=== PATIENT | female | born 1960 | race Caucasian/White ===

== ENCOUNTER 2018-01-10 09:29 | Outpatient (CLI) | payer BC | END 2018-01-10 09:30 | disposition home or self-care (01) | LOC: BICMAMMO 09:29 | PROVIDERS: ATTEND Obstetrics & Gynecology | DX: Z12.31 Encounter for screening mammogram for malignant neoplasm of breast (principal); Z80.3 Family history of malignant neoplasm of breast | CPT/HCPCS: 77063; 77067 ==

== ENCOUNTER 2022-03-13 08:44 | Outpatient (CLI) | payer BC | END 2022-03-13 08:45 | disposition home or self-care (01) | LOC: BICMAMMO 08:44 | PROVIDERS: ATTEND Family Medicine | DX: Z13.820 Encounter for screening for osteoporosis (principal); M85.851 Other specified disorders of bone density and structure, right thigh | CPT/HCPCS: 77080 ==